=== PATIENT | female | born 1980 ===

== ENCOUNTER 2017-09-29 22:51 | Emergency (ER) | payer OTHER ==
[2017-09-29 23:09] VITALS: TEMP 98
[2017-09-29] MEDS ORDERED: Sodium Chloride 0.9% 1,000 ML IV STA (23:20)
--- NOTE | 2017-09-29 23:27 | ED PDOC ---
HPI: Female Pain Time Seen by Provider: 09/29/17 23:12 Chief Complaint (Nursing): Female Genitourinary Chief Complaint (Provider): Female Genitourinary History Per: Patient History/Exam Limitations: no limitations Onset/Duration Of Symptoms: Hrs (since morning) Current Symptoms Are (Timing): Still Present Associated Symptoms: denies: Nausea, Chest Pain, Urinary Symptoms Additional Complaint(s): 37 year old female presents to ED with complaints of pelvic pain since morning, has no past medical history. History and translation as per . Notes that current pain is similar to menstrual pain, yet more severe. (+) mild vaginal bleeding. (-) chest pain, nausea, vomiting, SOB, or urinary symptoms. Reports that US taken last week demonstrated a sac with no yolk. Dr. Cervantes from [facility]. Abnormal Vaginal Bleeding: Yes Past Medical History Reviewed: Historical Data, Nursing Documentation, Vital Signs Vital Signs: Last Vital Signs Temp 98.0 F 09/29/17 23:07 Pulse 78 09/29/17 23:07 Resp 16 09/29/17 23:07 BP 110/73 09/29/17 23:07 Pulse Ox 98 09/29/17 23:07 - Medical History PMH: No Chronic Diseases - Surgical History Surgical History: No Surg Hx - Family History Family History: States: No Known Family Hx - Living Arrangements Living Arrangements: With Family - Social History Current smoker - smoking cessation education provided: No Alcohol: None Drugs: Denies - Allergies Allergies/Adverse Reactions: Allergies Allergy/AdvReac Type Severity Reaction Status Date / Time No Known Allergies Allergy Verified 09/29/17 23:07 Review of Systems ROS Statement: Except As Marked, All Systems Reviewed And Found Negative Cardiovascular: Negative for: Chest Pain Respiratory: Negative for: Shortness of Breath Gastrointestinal: Negative for: Nausea, Vomiting Genitourinary Female: Positive for: Vaginal Bleeding, Pelvic Pain. Negative for : Dysuria, Frequency, Incontinence, Hematuria Physical Exam - Reviewed Nursing Documentation Reviewed: Yes Vital Signs Reviewed: Yes - Physical Exam Appears: Positive for: Non-toxic, No Acute Distress Skin: Positive for: Normal Color, Warm, Dry Eye Exam: Positive for: Normal appearance, EOMI, PERRL Neck: Positive for: Normal, Painless ROM, Supple Cardiovascular/Chest: Positive for: Regular Rate, Rhythm. Negative for: Murmur Respiratory: Positive for: Normal Breath Sounds. Negative for: Respiratory Distress Gastrointestinal/Abdominal: Positive for: Soft, Tenderness (tenderness across lower pelvis) Back: Positive for: Normal Inspection. Negative for: L CVA Tenderness, R CVA Tenderness Extremity: Positive for: Normal ROM. Negative for: Deformity Neurologic/Psych: Positive for: Alert, Oriented. Negative for: Motor/Sensory Deficits - ECG O2 Sat by Pulse Oximetry: 98 (RA) Pulse Ox Interpretation: Normal - Progress ED Course And Treament: 2352: Stable. AAOx3. Pain controlled. Dr. Lowe to fu on US read an labs. Medical Decision Making Medical Decision Makin Initial impression: pelvic pain and Initial plan: * ABO/RH * T&S * Beta HCG QUANT * Labs * UDip * NS IV * Acetaminophen 975mg PO * US OB TRANSVAG PREG * Re-eval Scribe Attestation: Documented by Odessa Castellano acting as a scribe for Kirby Blake MD. Scribe Attestation: All medical record entries made by the Scribe were at my direction and personally dictated by me. I have reviewed the chart and agree that the record accurately reflects my personal performance of the history, physical exam, medical decision making, and the department course for this patient. I have also personally directed, reviewed, and agree with the discharge instructions and disposition. Disposition - Clinical Impression Clinical Impression: Threatened - Patient ED Disposition Is Patient to be Admitted: Transfer of Care - Disposition Disposition: Transfer of Care Disposition Time: 23:54 Condition: FAIR Patient Signed Over To: Matty Lowe
--- NOTE | 2017-09-30 00:15 | US ---
EXAM: US First Trimester, Transabdominal CLINICAL HISTORY: 37 years old, female; Pain and signs and symptoms; Lmp or gestational age (in weeks): 07/11/17; Antepartum complications; Hemorrhage; Other: Cramps; Additional info: Preg and pain TECHNIQUE: Real-time transabdominal obstetrical ultrasound of the maternal pelvis and a first trimester with image documentation. COMPARISON: No relevant prior studies available. FINDINGS: Gestation: 3.8 x 1.3 x 1.7 cm saclike structure within lower uterine segment. No yolk sac. No pole. Uterus/cervix: Endometrium: 1.2 cm in thickness. Closed cervix. Ovaries: RIGHT ovary: 1.9 x 1.6 x 1.8 cm anechoic lesion. LEFT ovary: Normal. No adnexal masses. Free fluid: No significant free fluid. IMPRESSION: 1. Sac without pole or yolk sac within lower uterine segment. DDX: Blighted ovum, ectopic (with pseudogestational sac). Favor blighted ovum. Followup is recommended. 2. RIGHT ovarian cyst. EXAM: US , Transvaginal CLINICAL HISTORY: 37 years old, female; Pain and signs and symptoms; Lmp or gestational age (in weeks): 07/11/17; Antepartum complications; Hemorrhage; Other: Cramps; Additional info: Preg and pain TECHNIQUE: Real-time transvaginal obstetrical ultrasound of the maternal pelvis and a first trimester with image documentation. Transvaginal imaging was used for better evaluation of the fetus and adnexa. COMPARISON: No relevant prior studies available. FINDINGS: Gestation: 3.8 x 1.3 x 1.7 cm saclike structure within lower uterine segment. No yolk sac. No pole. Uterus/cervix: Endometrium: 1.2 cm in thickness. Closed cervix. Ovaries: RIGHT ovary: 1.9 x 1.6 x 1.8 cm anechoic lesion. LEFT ovary: Normal. No adnexal masses. Free fluid: No significant free fluid.
--- NOTE | 2017-09-30 00:24 | ED PDOC ---
- Laboratory Results Result Diagrams: 09/30/17 00:38 09/30/17 00:38 - ECG O2 Sat by Pulse Oximetry: 98 (RA) Medical Decision Making Medical Decision Makin Patient signed out to me from Dr. Blake pending US and labs. 0014 US FINDINGS Gestation: 3.8 x 1.3 x 1.7 cm saclike structure within lower uterine segment. No yolk sac. No pole. Uterus/cervix: Endometrium: 1.2 cm in thickness. Closed cervix. Ovaries: RIGHT ovary: 1.9 x 1.6 x 1.8 cm anechoic lesion. LEFT ovary: Normal. No adnexal masses. Free fluid: No significant free fluid. IMPRESSION: 1. Sac without pole or yolk sac within lower uterine segment. DDX: Blighted ovum, ectopic (with pseudogestational sac). Favor blighted ovum. Followup is recommended. 2. RIGHT ovarian cyst. 0118 Patient reports mild improvement in pain. Patient passed large blood clot that may represent tissue. 0206 Labs reviewed: no clinically significant abnormalities. Reviewed results with patient, who has an OB with which she has a follow up appointment in 5 days. Provider suggested patient make an appointment within the next 2 days, as patient needs repeat beta HCG level. Provider made patient aware that if unable to secure a follow up with OB, patient can return to ED. Provider recommended Tylenol, fluids, and pelvic rest. Dx: spontaneous , blighted ovum Condition: stable Scribe Attestation: Documented by Odessa Castellano acting as a scribe for Matty Lowe MD. Scribe Attestation: All medical record entries made by the Scribe were at my direction and personally dictated by me. I have reviewed the chart and agree that the record accurately reflects my personal performance of the history, physical exam, medical decision making, and the department course for this patient. I have also personally directed, reviewed, and agree with the discharge instructions and disposition. Disposition - Clinical Impression Clinical Impression: Spontaneous - POA Present On Arrival: None - Disposition [facility]errals[facility] [Outside] Disposition: Routine/Home Disposition Time: 02:08 Condition: FAIR Additional Instructions: Sigue con campos Obstetrico o la clinica Puede anuradha Tylenol para dolor Si no puede eran campos medico en 2 mccullough, regrese a la jean marie de emergencia para repeticion de la prueba de barrett Instructions: Spontaneous Miscarriage (ED) Forms: [facility] (Luxembourgish) Print Language: LITHUANIAN
[2017-09-30 00:46] LABS: BASO % 0.3 % (0.0-2.0); EOS # 0.2 K/uL (0.0-0.7); LYMPH # 2.1 K/uL (1.0-4.3); LYMPH % 17.3 % (20.0-40.0); MEAN CELL VOLUME 98.8 fl (81.0-99.0); MEAN CORPUSCULAR HEMOGLOBIN 32.2 pg (27.0-31.0); MEAN CORPUSCULAR HGB CONC 32.6 g/dL (33.0-37.0); MEAN PLATELET VOLUME 8.5 fl (7.2-11.7); MONO # 0.7 K/uL (0.0-0.8); NEUT % 74.4 % (50.0-75.0); NRBC % 0.1 % (0.0-0.0); RBC 4.34 Mil/uL (3.80-5.20); RED CELL DISTRIBUTION WIDTH 13.6 % (11.5-14.5); WHITE BLOOD COUNT 12.2 K/uL (4.8-10.8)
[2017-09-30 00:53] LABS: ALB/GLOB RATIO 1.4 (1.0-2.1); ALBUMIN 4.6 g/dL (3.5-5.0); ALT/SGPT 37 U/L (9-52); AST/SGOT 24 U/L (14-36); BLOOD UREA NITROGEN 19 mg/dl (7-17); CALCIUM 9.8 mg/dL (8.4-10.2); GFR AFRICAN-AMERICAN > 60; GFR NON-AFRICAN AMERICAN > 60
[2017-09-30 02:13] VITALS: BP 103/62; PULSE 69; RESP 18
[2017-09-30 03:01] VITALS: O2SAT 98
== END 2017-09-30 02:13 | disposition home or self-care (01) ==
LOC: H.ER 22:51
DX: O03.9 Complete or unspecified spontaneous abortion without complication (principal); N83.201 Unspecified ovarian cyst, right side; Z3A.10 10 weeks gestation of pregnancy
CPT/HCPCS: 76815; 76817; 80053; 84702; 85025; 86850; 86900; 88305; 96360; 96361; 99282; J7040

== ENCOUNTER 2017-10-01 16:54 | Emergency (ER) | payer OTHER ==
[2017-10-01 17:21] VITALS: BP 108/62; PULSE 65; RESP 16; TEMP 98.2; O2SAT 100
--- NOTE | 2017-10-01 17:29 | ED PDOC ---
HPI: General Adult Time Seen by Provider: 10/01/17 17:28 Chief Complaint (Nursing): Medical Clearance Chief Complaint (Provider): repeat beta History Per: Patient History/Exam Limitations: no limitations Recently: Seen In ED Additional Complaint(s): 37 y/o female here for repeat beta-HCG level. Patient was seen 09/29/2017 and noted to have blighted ovum on US pelvic. Patient passed product while in ED noted large clot which was suspected to be product. Notes persisent bleeding similar to menses. Denies any dizziness/ fatigue/abdominal pain. PMD: none Past Medical History Reviewed: Historical Data, Nursing Documentation, Vital Signs Vital Signs: Last Vital Signs Temp 98.2 F 10/01/17 17:20 Pulse 65 10/01/17 17:20 Resp 16 10/01/17 17:20 BP 108/62 10/01/17 17:20 Pulse Ox 100 10/01/17 17:57 - Family History Family History: States: Unknown Family Hx - Immunization History Hx Tetanus Toxoid Vaccination: No Hx Influenza Vaccination: No Hx Pneumococcal Vaccination: No - Allergies Allergies/Adverse Reactions: Allergies Allergy/AdvReac Type Severity Reaction Status Date / Time No Known Allergies Allergy Verified 09/29/17 23:07 Review of Systems ROS Statement: Except As Marked, All Systems Reviewed And Found Negative Constitutional: Negative for: Other (Fatigue) Gastrointestinal: Negative for: Abdominal Pain Genitourinary Female: Positive for: Vaginal Bleeding Neurological: Negative for: Dizziness Physical Exam - Reviewed Nursing Documentation Reviewed: Yes Vital Signs Reviewed: Yes - Physical Exam Appears: Positive for: Well, Non-toxic, No Acute Distress Head Exam: Positive for: ATRAUMATIC, NORMAL INSPECTION, NORMOCEPHALIC Skin: Positive for: Normal Color, Warm, DRY Eye Exam: Positive for: EOMI, Normal appearance, PERRL ENT: Positive for: Normal ENT Inspection Neck: Positive for: Normal, Painless ROM Cardiovascular/Chest: Positive for: Regular Rate, Rhythm Respiratory: Positive for: CNT, Normal Breath Sounds Gastrointestinal/Abdominal: Positive for: Normal Exam, Bowel Sounds, Soft Back: Positive for: Normal Inspection Extremity: Positive for: Normal ROM Neurologic/Psych: Positive for: Alert, Oriented - Laboratory Results Result Diagrams: 10/01/17 17:45 - ECG O2 Sat by Pulse Oximetry: 100 - Progress ED Course And Treament: beta 2968 2 days ago 1/3 beta today 549 Medical Decision Making Medical Decision Making: Time: 17:23 Initial Plan: --CBC w/ differential --Beta-HCG, quantitative --Pending reevaluation Scribe Attestation: Documented by Kailee Oliver, acting as a scribe for Supa Kaur PA-C Provider Scribe Attestation: All medical record entries made by the Scribe were at my direction and personally dictated by me. I have reviewed the chart and agree that the record accurately reflects my personal performance of the history, physical exam, medical decision making, and the department course for this patient. I have also personally directed, reviewed, and agree with the discharge instructions and disposition. Disposition - Clinical Impression Clinical Impression: Spontaneous - Patient ED Disposition Is Patient to be Admitted: No - Disposition [facility]errals: [facility] [Outside] Disposition: Routine/Home Disposition Time: 18:26 Condition: FAIR Instructions: Spontaneous Miscarriage (ED) Forms: [employer] (Upper Sorbian)
[2017-10-01 17:49] LABS: BASO % 0.5 % (0.0-2.0); EOS # 0.2 K/uL (0.0-0.7); EOS % 2.5 % (0.0-4.0); HEMOGLOBIN 12.9 g/dL (12.0-16.0); LYMPH # 1.6 K/uL (1.0-4.3); LYMPH % 23.4 % (20.0-40.0); MEAN CELL VOLUME 97.4 fl (81.0-99.0); MEAN CORPUSCULAR HEMOGLOBIN 32.7 pg (27.0-31.0); MEAN CORPUSCULAR HGB CONC 33.5 g/dL (33.0-37.0); MEAN PLATELET VOLUME 7.8 fl (7.2-11.7); MONO # 0.4 K/uL (0.0-0.8); MONO % 5.3 % (0.0-10.0); NEUT # 4.5 K/uL (1.8-7.0); NEUT % 68.3 % (50.0-75.0); NRBC % 0.2 % (0.0-0.0); RBC 3.95 Mil/uL (3.80-5.20); RED CELL DISTRIBUTION WIDTH 13.4 % (11.5-14.5); WHITE BLOOD COUNT 6.6 K/uL (4.8-10.8)
--- NOTE | 2017-10-02 09:48 | US ---
HISTORY: r/o ectopic; evaluate for completed COMPARISON: 09/29/2017 TECHNIQUE: Real-time transvaginal ultrasound examination of the pelvis was performed and compared to the prior study. FINDINGS: UTERUS: Measures 8.3 x 4.5 x 5.7 cm. Uterus is grossly normal in size and unchanged from the prior exam. No focal fibroid was seen. ENDOMETRIUM: Measures 9 mm in diameter. Since the prior examination there has been interval resolution of previously seen gestational sac like structure within the endometrial canal and lower uterine segment. No appreciable residual sac is noted with probable completed . No residual gestational sac noted. CERVIX: No cervical abnormality identified. RIGHT OVARY: Measures 2.3 x 1.3 x 2.4 cm. Previously identified right ovarian cyst is slightly smaller in size now measuring 15 millimeters x 12 millimeters x 14 millimeters, previously 19 millimeters x 16 millimeters x 17 millimeters. No new ovarian cysts are seen. Right ovary has normal Doppler flow. LEFT OVARY: Measures 2.1 x 1.5 x 2.0, unchanged. Cm. No solid mass. Normal flow. FREE FLUID: No significant free fluid noted. OTHER FINDINGS: None. IMPRESSION: There has been interval passage of previously identified gestational sac like structure without residual gestational sac remaining. Finding suggests completed spontaneous . Endometrial complex measures 9 millimeters. No significant increased Doppler flow was noted in this region to suggest retained products of conception at the present time. Beta HCG is noted to measure 549 in the should be further followed until resolution. Mild decrease in right ovarian cyst probably representing a corpus luteal cyst. No fluid in the pelvis. This agrees with preliminary report provided by the on-call radiologist.
== END 2017-10-01 20:33 | disposition home or self-care (01) ==
LOC: H.ER 16:54
DX: O03.9 Complete or unspecified spontaneous abortion without complication (principal); O02.0 Blighted ovum and nonhydatidiform mole; N83.201 Unspecified ovarian cyst, right side

== ENCOUNTER 2018-05-16 19:34 | Emergency (ER) | payer OTHER ==
[2018-05-16 19:58] VITALS: O2SAT 100
[2018-05-16] MEDS ORDERED: Tobramycin 0.3% OPHT SOLN OD ONE (20:56)
[2018-05-16] MEDS ORDERED: PROPARACAINE/FLUORESCEIN SOD 100 DROP/5 ML BOTTLE OD STA (20:56)
--- NOTE | 2018-05-16 20:58 | ED PDOC ---
HPI: Skin/Bite Injury Time Seen by Provider: 05/16/18 20:17 Chief Complaint (Nursing): Abnormal Skin Integrity Chief Complaint (Provider): Abnormal Skin Integrity History Per: Patient History/Exam Limitations: no limitations Onset/Duration Of Symptoms: Days (x2) Current Symptoms Are (Timing): Still Present Additional Complaint(s): 37 year old female arrives to ED for an evaluation of a painful and itchy rash to her left mid-back radiating to her left forearm ongoing for 2 days. Patient states [place] was [place] the [place] and may have developed symptoms from rope contact. Reports no new medications or food, changes in soaps /lotions. Additionally, she reports right eye redness and pain. Otherwise: (-) discharge, (-) decreased vision, (-) fever, (-) chills, (-) headache, (-) use of contacts or glasses. Past Medical History Reviewed: Historical Data, Nursing Documentation, Vital Signs Vital Signs: Last Vital Signs Temp 97.9 F 05/16/18 19:55 Pulse 59 L 05/16/18 19:55 Resp 18 05/16/18 19:55 BP Pulse Ox 100 05/16/18 21:07 - Medical History PMH: No Chronic Diseases - Family History Family History: States: Unknown Family Hx - Immunization History Hx Tetanus Toxoid Vaccination: No Hx Influenza Vaccination: No Hx Pneumococcal Vaccination: No - Home Medications Home Medications: Ambulatory Orders Medication Instructions Recorded Acyclovir [Zovirax] 800 mg PO 5XD #35 tablet 05/16/18 Cetirizine HCl [Zyrtec] 10 mg PO DAILY #30 capsule 05/16/18 Tobramycin 0.3% [Tobrex 0.3% Ophth 2 drop OD QID #1 bottle 05/16/18 Soln] - Allergies Allergies/Adverse Reactions: Allergies Allergy/AdvReac Type Severity Reaction Status Date / Time No Known Allergies Allergy Verified 05/16/18 19:58 Review of Systems ROS Statement: Except As Marked, All Systems Reviewed And Found Negative Constitutional: Negative for: Fever, Chills Eyes: Positive for: Redness (right-sided). Negative for: Vision Change, Other ( discharge) Skin: Positive for: Rash (left mid-back and left forearm with pain and itchiness ) Neurological: Negative for: Headache Physical Exam - Reviewed Nursing Documentation Reviewed: Yes Vital Signs Reviewed: Yes - Physical Exam Comments: GENERAL APPEARANCE: Patient is awake, alert, oriented x 3, in no acute distress. SKIN: Warm, dry; (-) cyanosis, (+) erythematous vesicular rash to left mid- back extending to the medial aspect of left arm & forearm, following a dermatomal pattern. EYES: Visual acuity : R eye 20/25 L eye 20/25. PERRL. EOMI. (+) right conjunctival injection, (+) corneal abrasion at 12 o'clock - R eye, (-) d/c, (- ) FB. Eye lids are normal in appearance without FB. ENMT: Mucous membranes are moist. TMs: (-) erythema. Airway patent: (-) stridor. Pharynx: (-) erythema, (-) exudate. NECK: (-) tenderness, (-) stiffness, (-) meningismus, (-) lymphadenopathy. NEURO AND PSYCH: Mental status as above; (-) focal findings. - ECG O2 Sat by Pulse Oximetry: 100 (RA) Pulse Ox Interpretation: Normal Medical Decision Making Medical Decision Making: Time: 2055 Initial Plan: * Flucaine eye drops * Tobrex 0.3% ophth soln * Zovirax 800mg PO Advised to follow up with dermatology and ophthalmology referral provided in 1- 2 days without fail. Advised to take medication as prescribed. Return to the emergency room at any time for any new or worsening symptoms. Patient states she fully agrees with and understands discharge instructions. States that she agrees with the plan and disposition. Verbalized and repeated discharge instructions and plan. I have given the patient opportunity to ask any additional questions. Scribe Attestation: Documented by Laney Mejia, acting as a scribe for Darcy Lundberg PA-C. Provider Scribe Attestation: All medical record entries made by the Scribe were at my direction and personally dictated by me. I have reviewed the chart and agree that the record accurately reflects my personal performance of the history, physical exam, medical decision making, and the department course for this patient. I have also personally directed, reviewed, and agree with the discharge instructions and disposition. Disposition - Clinical Impression Clinical Impression: Herpes zoster, Corneal abrasion, right Counseled Patient/Family Regarding: Diagnosis, Need For Followup, Rx Given - Disposition Referrals: Lane Aceves MD [Staff Provider] - Andrew Lynn MD [Staff Provider] - Disposition: Routine/Home Disposition Time: 21:40 Condition: STABLE Additional Instructions: Thank you for letting us take care of you today. You were treated for herpes zoster, corneal abrasion - R eye. The emergency medical care you received today was directed at your acute symptoms. If you were prescribed any medication, please fill it and take as directed. It may take several days for your symptoms to resolve. Return to the Emergency Department if your symptoms worsen, do not improve, or if you have any other problems. Please contact your doctor in 2 days for re-evaluation and follow up / or call one of the physicians/clinics you have been referred to that are listed on the Patient Visit Information form that is included in your discharge packet. Bring any paperwork you were given at discharge with you along with any medications you are taking to your follow up visit. Our treatment cannot replace ongoing medical care by a primary care provider (PCP) outside of the emergency department. Thank you for allowing the [facility] team to be part of your care today. 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
[2018-05-16 22:07] VITALS: BP 129/77; PULSE 81; RESP 16; TEMP 98.2
== END 2018-05-16 22:07 | disposition home or self-care (01) ==
LOC: H.ER 19:34
DX: B02.9 Zoster without complications (principal); S05.01XA Injury of conjunctiva and corneal abrasion without foreign body, right eye, initial encounter; Y92.89 Other specified places as the place of occurrence of the external cause